=== PATIENT | female | born 1975 | race Caucasian/White ===

== ENCOUNTER 2018-09-17 11:14 | Day surgery (SDC) | payer OTHER ==
[~2018-09-17 11:14] MED LIST: ACETAMINOPHEN 1,000 MG/100 ML INJ IV ONE; BUPIVACAINE HCL 0.25%/EPI. PF 30 ML VIAL IJ ONE; DEXAMETHASONE SOD PHOS 4 MG/ML VIAL ONE; ESMOLOL HCL 100 MG/10 ML IV ONE; FAMOTIDINE/PF 20 MG/2 ML VIAL ONE; FENTANYL 250MCG/5ML VIAL ONE; HYDROmorphone HCL/PF 2 MG/ML DISP.SYRIN ONE; LACTATED RINGERS 1,000 ML IV.SOLN IV ONE; LIDOCAINE HCL/PF 2% 100 MG/5 ML VIAL IJ ONE; Lidocaine 1% PF 30ml 10 MG/ML VIAL ONE; MIDAZOLAM HCL 2 MG/2 ML VIAL ONE; ONDANSETRON HCL/PF 4 MG/ 2ML VIAL ONE; PROPOFOL 200 MG/20 ML VIAL IV ONE; ROCURONIUM BROMIDE 10 MG/ML 5ML VIAL ONE; SCOPOLAMINE HYDROBROMIDE 1.5MG/72HR PATCH TD ONE; SEVOFLURANE 250 ML LIQUID IH ONE; SODIUM CHLORIDE IRRIG SOLUTION 3,000 ML IRRIG.SOLN IR ONE; SUCCINYLCHOLINE CHLORIDE 20 MG/ML 10ML VIAL ONE; SUGAMMADEX 200 mg/2mL 200 MG/2 ML VIAL IV ONE; ceFAZolin SODIUM 1 GM VIAL ONE; fentaNYL CITRATE/PF 100 MCG/ 2ML AMP ONE
[2018-09-17] MEDS ORDERED: SCOPOLAMINE HYDROBROMIDE 1.5MG/72HR PATCH TD ONE (11:39)
[2018-09-17] MEDS ORDERED: ENOXAPARIN SODIUM 40 MG/0.4 ML DISP.SYRIN SQ ONE (11:39)
[2018-09-17] MEDS ORDERED: LACTATED RINGERS 1,000 ML IV ONE (11:40)
[2018-09-17] MEDS ORDERED: FAMOTIDINE/PF 20 MG/2 ML VIAL ONE (11:40)
== END 2018-09-17 17:00 | disposition other institution (70) ==
LOC: OPSURG 11:14
PROVIDERS: ATTEND Surgery
DX: E66.01 Morbid (severe) obesity due to excess calories (principal); Z68.42 Body mass index [BMI] 45.0-49.9, adult; I10 Essential (primary) hypertension; E78.5 Hyperlipidemia, unspecified; G47.30 Sleep apnea, unspecified; K44.9 Diaphragmatic hernia without obstruction or gangrene
CPT/HCPCS: 43235; J0330; J0690; J1100; J1170; J1650; J2001; J2250; J2405; J2704; J3010; S0028; 43775; A9270-GY; J7120

== ENCOUNTER 2018-09-17 17:00 | Inpatient (IN) | payer OTHER ==
[2018-09-17] MEDS ORDERED: PROMETHAZINE HCL 25 MG in 0.9 % SODIUM CHLORIDE 50 ML IV PRN (17:28)
[2018-09-17] MEDS ORDERED: ONDANSETRON HCL/PF 4 MG/ 2ML VIAL IVP PRN (17:28)
[2018-09-17] MEDS ORDERED: MORPHINE SULFATE 4 MG/ML PREFILLED SYR IVP PRN (17:28)
[2018-09-17] MEDS ORDERED: LEVALBUTEROL HCL 1.25 MG/3 ML AMPUL.NEB NEB PRN (17:28)
[2018-09-17] MEDS ORDERED: KETOROLAC TROMETHAMINE 30 MG/1ML VIAL IVP PRN (17:28)
--- NOTE | 2018-09-17 17:50 | History and Physical Report ---
History of Present Illnes - History of Present Illness Reason for Visit: S/P Gastric Sleeve History of Present Illness: Patient is a 43-year-old white female that who has tried different diets and exercises with no success. She states that she has had trouble with her weight for 22 years. It was decided by patient and surgeon that she is a candidate for Gastric sleeve and plans were made to move forward. Patient will be admitted for post-surgical monitoring and treatment. - Past Medical History Cardiac: Hyperlipidemia Pulmonary: Asthma, Sleep Apnea [employer]: denies: Dementia, Seizure Gastrointestinal: GERD Heme/Onc: denies: Anemia NOS, Iron deficiency anemia Hepatobiliary: denies: Hep A/B/C Psych: Depression Musculoskeletal: Chronic low back pain Rheumatologic: denies: Fibromyalgia, Rheumatoid arthritis Infectious Disease: denies: HIV ENT: denies: Sinusitis Renal/: Chronic renal failure Endocrine: Hypothyroidism (s/p radiation therapy), obesity Grav: 3 Para: 2 Ab: 1 - Past Surgical History Past Surgical History: Cholecystectomy, Tubal Ligation - Past Family History Mother Family History: Other (healthy) Father Family History: Hyperlipidemia, Hypertension, Other (obesity) - Past Social History Smoke: No Alcohol: Rare Drugs: None Lives: With Family Domestic Violence: Negative - Health Maintenance Health Maintenance: Cholesterol, Influenza Vaccine, Mammogram Influenza Vaccine: Current for this Influenza Season Pneumonia Vaccine: No Resuscitation Status: Resusciation Status Resuscitation Status Full Code - Unable to Obtain History Unable to Obtain: No Review of Systems - Review of Systems Constitutional: negative: Fever, Chills Eyes: negative: pain, vision change ENT: negative: Ear Pain, Ear Discharge, Throat Pain Respiratory: SOB with Excertion. negative: Cough, Shortness of Breath Cardiovascular: negative: Chest Pain, Palpitations Gastrointestinal: Nausea, Abdominal Pain (S/P gastric sleeve). negative: Vomiting Genitourinary: negative: Dysuria Musculoskeletal: Back Pain Skin: negative: Rash Neurological: negative: Incoordination, Confusion - Medications/Allergies Current Inpatient Medications: Current Inpatient Medications Cefazolin Sodium/Dextrose (Cefazolin 1 G/50 Ml-Dextrose) 1 gm IV Q8H JENAE Stop: 09/18/18 06:01 Enoxaparin Sodium (Lovenox) 40 mg SQ QD JENAE Stop: 10/01/18 17:59 Famotidine (Pepcid) 20 mg IVP BID JENAE Stop: 09/21/18 20:59 Promethazine HCl 25 mg/ Sodium (Chloride) 51 mls @ 600 mls/hr IV Q6 PRN PRN Reason: Nausea / Vomiting Stop: 09/21/18 17:27 Sodium Chloride (Normal Saline) 1,000 mls @ 150 mls/hr IV Q8H [facility] Ketorolac Tromethamine (Toradol) 30 mg IVP Q6 PRN PRN Reason: For Mild Pain Stop: 09/21/18 17:27 Levalbuterol HCl (Xopenex) 1.25 mg NEB Q4 PRN PRN Reason: SOA, Dyspnea, or Wheezing Stop: 09/21/18 17:27 Morphine Sulfate () 2 mg IVP Q2 PRN PRN Reason: MODERATE PAIN Stop: 09/21/18 17:27 Ondansetron HCl (Zofran 4 Mg/2 Ml) 4 mg IVP Q6H PRN PRN Reason: Nausea / Vomiting Stop: 09/21/18 17:27 Exam - Exam Vital Signs: Vital Signs (72 hours) 09/17/18 09/17/18 17:00 17:35 Temperature 95.9 F L 95.9 F L Pulse Rate [ 84 87 Right] Respiratory 18 20 Rate Blood Pressure 150/83 153/83 [Right Arm] O2 Sat by Pulse 92 98 Oximetry General: Alert, Oriented to Person, Oriented to Place, Oriented to Time, Cooperative, Mild distress HEENT: Atraumatic, PERRLA, Mouth Mucous membr. moist/Blessing, Nose Mucous membr. moist/Blessing Neck: Normal Range of Motion Lungs: Clear to auscultation, Normal air movement, Speaks full Sentences. No: Wheezes, Rales Cardiovascular: Regular rate, Normal S1, Normal S2 Abdomen: Soft, Decreased Bowel Sounds. No: Distended, Rigid Integumentary: Normal, [place], Warm, Dry Extremities: No cyanosis, No edema, Normal pulses, No tenderness/swelling Neurological: Normal gait (patient has been ambulating), Normal speech, Strength Equal Bilat, Sensation intact Psych/Mental Status: Mental status NL, Mood NL, Appropriate Affect Assessment/Plan - Assessment/Plan (1) S/P gastric surgery Status: Acute Current Visit: Yes Assessment: incision site is without redness/erythema, legs are without swelling and tenderness, lungs are clear, nausea is minimal, pain is moderate Plan: Plan is to have patient up and walking frequently, Lovenox daily, wearing SCDs while in bed, using incentive spirometer regularly, Pepcid IV BID for gastric upset, and IVF until patient can tolerate oral fluids. (2) Morbid obesity due to excess calories Status: Acute Current Visit: Yes Plan: S/P Gastric Sleeve (3) Hypothyroid Status: Acute Current Visit: Yes Qualifiers: Hypothyroidism type: due to medication Qualified Code(s): E03.2 - Hypothyroidism due to medicaments and other exogenous substances Assessment: stable on home meds Plan: will hold thyroid medication and monitor (4) Hyperlipidemia Status: Acute Current Visit: Yes Qualifiers: Hyperlipidemia type: pure hypercholesterolemia Qualified Code(s): E78.00 - Pure hypercholesterolemia, unspecified; E78.0 - Pure hypercholesterolemia Assessment: stable on home meds Plan: plan is to hold meds and monitor (5) Depression Status: Acute Current Visit: Yes Qualifiers: Depression Type: other depression Qualified Code(s): F32.89 - Other specified depressive episodes Assessment: stable on home meds Plan: will continue on home meds (6) Sleep apnea Status: Acute Current Visit: Yes Qualifiers: Sleep apnea type: obstructive Qualified Code(s): G47.33 - Obstructive sleep apnea (adult) (pediatric) Assessment: patient does well with CPAP Plan: Plan is for patient to use CPAP (7) Renal failure Status: Acute Current Visit: Yes Qualifiers: Renal failure chronicity: chronic Chronic kidney disease stage: unspecified stage Qualified Code(s): N18.9 - Chronic kidney disease, unspecified Assessment: stable on home meds Plan: will monitor I & O (8) Chronic back pain Status: Acute Current Visit: Yes Qualifiers: Back pain location: low back pain Back pain laterality: bilateral Sciatica presence: without sciatica Qualified Code(s): M54.5 - Low back pain; G89.29 - Other chronic pain Assessment: stable on home meds Plan: plan is to have patient up and ambulating VTE Assessment - RISK FACTOR SCORE VTE RISK FACTOR SCORES: AGE 40-60 YEARS, OBESITY, MAJOR SURGERY/ANESTHESIA TIME > 1 HOUR (Lovenox daily, SCD's while in bed, frequent ambulation)
[2018-09-17] MEDS: 0.9 % SODIUM CHLORIDE 1,000 ML IV SCH (18:03)
[2018-09-17] MEDS: ENOXAPARIN SODIUM 40 MG/0.4 ML DISP.SYRIN SQ SCH (18:03)
[2018-09-17] MEDS ORDERED: 0.9 % SODIUM CHLORIDE 50 ML IV ONE (19:17)
[2018-09-17] MEDS: BUSPIRONE HCL 5 MG TABLET PO SCH (20:24)
[2018-09-17] MEDS: DULoxetine HCL 30 MG CAPSULE.DR PO SCH (20:24)
[2018-09-17] MEDS: traZODone HCL 50 MG TABLET PO SCH (20:25)
[2018-09-17] MEDS: FAMOTIDINE/PF 20 MG/2 ML VIAL IVP SCH (20:25)
[2018-09-17 21:30] VITALS: BMI 47.0
[2018-09-17] MEDS: CEFAZOLIN SODIUM/DEXTROSE,ISO 1 GM/50 ML PIGGYBACK IV SCH (21:57)
[2018-09-18] MEDS: HYDROcodone /APAP 10/325 1 EACH TABLET PO PRN ×2 (02:02→05:42)
[2018-09-18] MEDS: 0.9 % SODIUM CHLORIDE 1,000 ML IV SCH ×3 (02:49→19:49)
[2018-09-18] MEDS: CEFAZOLIN SODIUM/DEXTROSE,ISO 1 GM/50 ML PIGGYBACK IV SCH (05:09)
[2018-09-18] MEDS ORDERED: cefTRIAXone SODIUM 1 GM VIAL ONE (06:43)
[2018-09-18] MEDS: cefTRIAXone SODIUM 1 GM VIAL IM ONE ×2 (06:45→06:53)
--- NOTE | 2018-09-18 07:29 | Inpatient Progress Note ---
Subjective - Required Recertification Statement I anticipate X number of days because-include discharge plan: 1 day - Review of Systems Events since last encounter: Post Op Day #1 Patient seems to be doing well. Pain has been doing fair. Patient has had some nausea but no vomiting noted. Has passed a small amount of flatus. Pain has been manageable. Patient has been up ambulating and using incentive spirometry. Asthma has been stable with home meds. HEENT: Denies: Head Aches Pulmonary: Denies: Dyspnea, Cough, Pleuritic Chest Pain Cardiovascular: Denies: Chest Pain Gastrointestinal: Nausea, Abdominal Pain. Denies: Vomiting, Diarrhea, Constipation, Melena Genitourinary: Denies: Dysuria Objective - Exam Vitals and I&O: Vital Signs Temp 96.9 F L 09/18/18 05:45 Pulse 93 H 09/18/18 06:00 Resp 18 09/18/18 06:00 BP 125/90 09/18/18 05:45 Pulse Ox 93 09/18/18 06:00 Intake & Output 09/17/18 09/17/18 09/18/18 11:59 23:59 11:59 Intake Total 450 810 Output Total 100 25 Balance 350 785 Weight 124.284 kg Intake: IV 450 600 Left arm 450 600 Oral 210 Output: Urine 100 25 Other: Voiding Method Toilet Toilet # Voids 1 General: Alert, Oriented to Person, Oriented to Place, Oriented to Time, Cooperative Neck: Supple, No JVD, No thyromegaly Lungs: Clear to auscultation, Normal air movement, Speaks full Sentences. No: Wheezes Cardiovascular: Regular rate, Normal S1, Normal S2, No murmurs Abdomen: Soft, Other (diffuse tenderness, greater in RUQ area. Incision sites look clean and dry. Mild ecchymosis surrounding the sites. ). No: Distended Extremities: No: No clubbing, No cyanosis Skin: Normal, [place], Warm, Dry Psych/Mental Status: Mental status NL, Mood NL, Appropriate Affect Assessment/Plan - Assessment/Plan (1) Morbid obesity due to excess calories Status: Acute Current Visit: Yes Assessment: stable post op course. Will continue with present medications and treatment. Will encourage to ambulate and use spirometry. (2) Depression Status: Chronic Current Visit: Yes Qualifiers: Depression Type: other depression Qualified Code(s): F32.89 - Other specified depressive episodes Assessment: stable (3) Hyperlipidemia Status: Chronic Current Visit: Yes Qualifiers: Hyperlipidemia type: pure hypercholesterolemia Qualified Code(s): E78.00 - Pure hypercholesterolemia, unspecified; E78.0 - Pure hypercholesterolemia (4) Obstructive sleep apnea Status: Chronic Current Visit: Yes
[2018-09-18] MEDS: FAMOTIDINE/PF 20 MG/2 ML VIAL IVP SCH ×3 (09:29→20:28)
[2018-09-18] MEDS: traZODone HCL 50 MG TABLET PO SCH ×2 (09:45→20:20)
[2018-09-18] MEDS: BUSPIRONE HCL 5 MG TABLET PO SCH ×2 (09:45→20:19)
[2018-09-18] MEDS: DULoxetine HCL 30 MG CAPSULE.DR PO SCH ×2 (09:45→20:19)
[2018-09-18] MEDS: oxyCODONE/ACETAMINOPHEN 5/325 TABLET PO PRN ×2 (13:56→18:16)
[2018-09-18] MEDS: ENOXAPARIN SODIUM 40 MG/0.4 ML DISP.SYRIN SQ SCH (17:34)
[2018-09-19] MEDS: 0.9 % SODIUM CHLORIDE 1,000 ML IV SCH ×2 (02:12→08:28)
[2018-09-19] MEDS: oxyCODONE/ACETAMINOPHEN 5/325 TABLET PO PRN ×2 (04:10→09:19)
--- NOTE | 2018-09-19 07:53 | Discharge Summary ---
Discharge Summary - Discharge Sumary History of Present Illness: Patient is a 43-year-old white female that who has tried different diets and exercises with no success. She states that she has had trouble with her weight for 22 years. It was decided by patient and surgeon that she is a candidate for Gastric sleeve and plans were made to move forward. Patient will be admitted for post-surgical monitoring and treatment. Condition at Discharge: Stable Home Medications: Ambulatory Orders Medication Instructions Recorded Albuterol Sulfate [Proventil Hfa] 6.7 gm IH QID 09/17/18 Atorvastatin Calcium [Lipitor] 80 mg PO DAILY 09/17/18 Buspirone HCl [Buspar] 15 mg PO BID 09/17/18 Carvedilol [Coreg] 12.5 mg PO BID 09/17/18 Duloxetine HCl [Cymbalta] 60 mg PO BID 09/17/18 Furosemide [Lasix] 40 mg PO [id number] 09/17/18 Levothyroxine Sodium [Synthroid] 175 mcg PO 0700 09/17/18 Lisinopril 5 mg PO DAILY 09/17/18 Mometasone/Formoterol [Dulera 100 2 puff IH BID 09/17/18 Mcg/5 Mcg Inhaler] Trazodone HCl 50 mg PO BID 09/17/18 Hydrocodone/Acetaminophen [Warren 10 ml PO Q6H PRN #250 ml 09/18/18 7.5-325 Tablet] Promethazine HCl [Phenergan] 12.5 mg PO Q6H PRN #250 ml 09/18/18 Consultations this Visit: None Procedures this Visit: Other (S/p sleeve gastrectomy) Allergies/Adverse Reactions: Allergies Allergy/AdvReac Type Severity Reaction Status Date / Time No Known Allergies Allergy Verified 09/17/18 18:51 Patient Problems: Current Active Problems Problem Status Onset Chronic back pain Acute Hypothyroid Acute Morbid obesity due to excess calories Acute Renal failure Acute S/P gastric surgery Acute Sleep apnea Acute Depression Chronic Hyperlipidemia Chronic Obstructive sleep apnea Chronic Hospital Course: Patient did well post-op. Pain and nausea controlled. Advanced to full liquid diet. IS, ambulation, and loveox used accordingly. Carvediolol and lisinopril held while in hospital. Blood pressure in the 130's. Will monitor at home. Discharged home in good condition.
[2018-09-19] MEDS: BUSPIRONE HCL 5 MG TABLET PO SCH (08:17)
[2018-09-19] MEDS: DULoxetine HCL 30 MG CAPSULE.DR PO SCH (08:17)
[2018-09-19] MEDS: traZODone HCL 50 MG TABLET PO SCH (08:18)
[2018-09-19] MEDS ORDERED: MAG HYDROX/ALUMINUM HYD/SIMETH 30 ML UDC PO ONE ×2 (08:24)
[2018-09-19] MEDS: FAMOTIDINE/PF 20 MG/2 ML VIAL IVP SCH (08:28)
[2018-09-19 11:07] VITALS: BP 153/73
== END 2018-09-19 10:05 | disposition home or self-care (01) | DRG 641 ==
LOC: SOUTH 17:00
PROVIDERS: ADMIT Nurse Practitioner Family; ATTEND Nurse Practitioner Family
DX: E66.01 Morbid (severe) obesity due to excess calories (principal)
CPT/HCPCS: 99231; 99232; 99238; J0696; J1650; J1885; J2270; S0028; A9270-GY; J7030